=== PATIENT | female | born 1980 | race Two or more races ===

== ENCOUNTER 2018-01-08 12:01 | Emergency (ER) | payer OTHER ==
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
[2018-01-08 13:47] VITALS: BP 158/98
== END 2018-01-08 13:43 | disposition home or self-care (01) ==
LOC: CED 12:01
DX: S16.1XXA Strain of muscle, fascia and tendon at neck level, initial encounter (principal); V43.52XA Car driver injured in collision with other type car in traffic accident, initial encounter; Y92.410 Unspecified street and highway as the place of occurrence of the external cause; I10 Essential (primary) hypertension; E11.9 Type 2 diabetes mellitus without complications; E03.9 Hypothyroidism, unspecified
CPT/HCPCS: 72040-PO